=== PATIENT | male | born 1930 | race African-American/Black ===

== ENCOUNTER 2016-12-04 17:21 | Inpatient (IN) | payer MEDICARE, MEDICAID ==
[~2016-12-04] VITALS: Ht 167.6 cm; Wt 55.1 kg
[~2016-12-04 17:21] MED LIST: ATOR20TA65 PO; CINA30 PO; CLOP75TA2 PO; CLOP75TA33 PO; COR6 PO; Calcium Acetate PO; ONDA4TAB5 PO
[2016-12-04 18:06] LABS: BASOPHILS % 0.8 % (0.0-2.0); DIFFERENTIAL COMMENT 0; EOSINOPHILS % 6.6 % (0.0-5.0); HEMOGLOBIN. 11.9 g/dL (14.0-18.0); LYMPHOCYTES % 15.6 % (20.0-50.0); MEAN CORPUSCULAR HEMOGLOBIN 34.5 pg (28.0-32.0); MEAN CORPUSCULAR VOLUME 101.5 fL (80.0-94.0); MEAN PLATELET VOLUME 6.6 fl (7.4-10.4); PLATELET 234 x1000/uL (130-400); RED BLOOD CELL COUNT 3.45 mill/uL (4.7-6.1); RED CELL DISTRIBUTION WIDTH 15.1 % (11.6-14.6); WHITE BLOOD COUNT 5.6 x1000/uL (4.5-11.0)
[2016-12-04 18:15] LABS: CHLORIDE 94 mEq/L (98-107); INDEX HEMOLYSI 1 (1-3); INDEX ICTERIC 1 (1-4); INDEX LIPEMIC 1 (1-3)
[2016-12-04 18:17] LABS: ALBUMIN 3.8 g/dL (3.4-5.0); ANION GAP 12; CARBON DIOXIDE 32 mEq/L (21-32); MAGNESIUM 2.3 mg/dL (1.8-2.4)
[2016-12-04 18:18] LABS: INR 1.1; PARTIAL THROMBOPLASTIN TIME 27.1 sec (24.0-34.0); PROTHROMBIN TIME 11.3 sec
[2016-12-04 18:19] LABS: CALCIUM 8.6 mg/dL (8.5-10.1); LIPASE 350 IU/L (73-393); UREA NITROGEN BLOOD 19 mg/dL (7-21)
[2016-12-04 18:26] LABS: ALANINE AMINOTRANSFERASE 18 IU/L (13-61); PHOSPHORUS 1.9 mg/dL (2.5-4.9); TROPONIN I 0.03 ng/mL (0.00-0.04); eGFR 17 mL/min (>60)
[2016-12-04] MEDS ORDERED: NA PHOS,M-B/NA PHOS,DI-BA ENEMA 118ML PR PRN (19:45)
[2016-12-04] MEDS ORDERED: NITROGLYCERIN 0.4MG TABLET SL SL PRN (19:45)
[2016-12-04] MEDS ORDERED: MAGNESIUM/ALUMINUM HYDROXIDE/SIMETHICONE 30ML UDC PO PRN (19:45)
[2016-12-04] MEDS ORDERED: ONDANSETRON HCL 4MG/2ML VIAL IV PRN (19:45)
[2016-12-04] MEDS ORDERED: ZOLPIDEM TARTRATE 5MG TABLET PO PRN (19:45)
[2016-12-04] MEDS ORDERED: LORAZEPAM 2MG/ML CPJ IV PRN (19:45)
[2016-12-04] MEDS ORDERED: DOCUSATE SODIUM 100MG CAPSULE PO PRN (19:45)
[2016-12-04] MEDS ORDERED: ACETAMINOPHEN 325MG TABLET PO PRN (19:45)
[2016-12-04] MEDS ORDERED: IPRATROPIUM/ALBUTEROL 0.5-3(2.5)MG/3ML NEB INH PRN (19:45)
[2016-12-04] MEDS ORDERED: CLONIDINE 0.1MG TABLET PO PRN (19:45)
[2016-12-04] MEDS ORDERED: DIPHENHYDRAMINE 50MG/ML VIAL IV PRN (19:45)
[2016-12-04] MEDS ORDERED: GUAIFENESIN 200MG/10ML SUGAR FREE UDC PO PRN (19:45)
[2016-12-04] MEDS ORDERED: DEXTROSE 50% WATER 50ML SYRINGE IV PRN (20:45)
[2016-12-04] MEDS ORDERED: BLOOD SUGAR DIAGNOSTIC STRIP TEST SCH (21:00)
[2016-12-04] MEDS ORDERED: ATORVASTATIN CALCIUM 10MG TABLET PO SCH (21:00)
[2016-12-04] MEDS ORDERED: INSULIN LISPRO 100 UNITS/ML SUBCUT SCH (21:00)
[2016-12-04 23:25] LABS: CREATINE KINASE MB FRACTION 1.3 ng/mL (0.5-3.6); TROPONIN I 0.02 ng/mL (0.00-0.04)
[2016-12-05 00:30] VITALS: BP 156/81
[2016-12-05 04:00] VITALS: BP_SYST 134; BP_DIAS 170; BP_DIAS 70
[2016-12-05] MEDS: TRAMADOL 50MG TABLET PO PRN ×2 (05:48)
[2016-12-05] MEDS ORDERED: CARVEDILOL 3.125 MG TABLET PO SCH (06:00)
[2016-12-05] MEDS: BLOOD SUGAR DIAGNOSTIC STRIP TEST SCH ×4 (06:20→21:15)
[2016-12-05 06:43] LABS: CREATINE KINASE MB FRACTION 1.3 ng/mL (0.5-3.6); TROPONIN I 0.03 ng/mL (0.00-0.04)
[2016-12-05] MEDS: INSULIN LISPRO 100 UNITS/ML SUBCUT SCH ×4 (07:50→21:00)
[2016-12-05 08:11] VITALS: BP 130/75
[2016-12-05] MEDS: MORPHINE SULFATE 2 MG/ML CPJ (NOT FOR IM USE) IV PRN ×2 (08:23→13:53)
[2016-12-05] MEDS: ENOXAPARIN 30MG/0.3ML SYR SUBCUT SCH (08:31)
[2016-12-05] MEDS: FOLIC ACID/VITAMIN B COMP W-C TABLET PO SCH (08:31)
[2016-12-05] MEDS: CLOPIDOGREL 75MG TABLET PO SCH (08:32)
[2016-12-05] MEDS: PANTOPRAZOLE SODIUM 40 MG/VIAL IV SCH (08:32)
[2016-12-05] MEDS: ISOSORBIDE MONONITRATE 30MG TABLET SR 24HR PO SCH (11:37)
[2016-12-05 12:18] VITALS: BP 110/70
[2016-12-05 16:00] VITALS: BP 140/83
[2016-12-05 20:00] VITALS: BP 91/59
[2016-12-05] MEDS: METOPROLOL TARTRATE 50MG TABLET PO SCH (21:00)
[2016-12-05] MEDS: ATORVASTATIN CALCIUM 10MG TABLET PO SCH (21:14)
[2016-12-06] VITALS: BP 84/55
[2016-12-06] MEDS ORDERED: SODIUM CHLORIDE 0.9% 500 ML IV ONE ×2 (01:30→05:15)
[2016-12-06 04:00] VITALS: BP 86/50
[2016-12-06 06:37] LABS: CALCIUM 7.7 mg/dL (8.5-10.1)
[2016-12-06 06:41] LABS: MAGNESIUM 2.2 mg/dL (1.8-2.4); PHOSPHORUS 3.7 mg/dL (2.5-4.9)
[2016-12-06 06:45] LABS: DIFFERENTIAL COMMENT 0; HEMATOCRIT. 30.3 % (42.0-52.0); HEMOGLOBIN. 10.4 g/dL (14.0-18.0); LYMPHOCYTES % 20.2 % (20.0-50.0); MEAN CORPUSCULAR HEMOGLOBIN 34.8 pg (28.0-32.0); MEAN CORPUSCULAR HGB CONC 34.3 g/dL (31.0-37.0); MEAN CORPUSCULAR VOLUME 101.3 fL (80.0-94.0); MEAN PLATELET VOLUME 6.9 fl (7.4-10.4); MONOCYTES % 14.7 % (2.0-8.0); NEUTROPHILS % 58.1 % (40.0-76.0); PLATELET 209 x1000/uL (130-400); RED CELL DISTRIBUTION WIDTH 14.8 % (11.6-14.6); WHITE BLOOD COUNT 4.9 x1000/uL (4.5-11.0)
[2016-12-06] MEDS: INSULIN LISPRO 100 UNITS/ML SUBCUT SCH (07:19)
[2016-12-06] MEDS: BLOOD SUGAR DIAGNOSTIC STRIP TEST SCH (07:19)
[2016-12-06 07:32] VITALS: BP 113/64
[2016-12-06] MEDS: METOPROLOL TARTRATE 50MG TABLET PO SCH (09:00)
[2016-12-06] MEDS: ISOSORBIDE MONONITRATE 30MG TABLET SR 24HR PO SCH (09:00)
[2016-12-06] MEDS: PANTOPRAZOLE SODIUM 40 MG/VIAL IV SCH (09:02)
[2016-12-06] MEDS: ENOXAPARIN 30MG/0.3ML SYR SUBCUT SCH (09:02)
[2016-12-06] MEDS: FOLIC ACID/VITAMIN B COMP W-C TABLET PO SCH (09:02)
[2016-12-06] MEDS: CLOPIDOGREL 75MG TABLET PO SCH (09:02)
[2016-12-06 12:00] VITALS: BP 112/67
[2016-12-06 15:54] VITALS: BP 111/59
[2016-12-06 20:00] VITALS: BP 130/62
[2016-12-06] MEDS: ATORVASTATIN CALCIUM 10MG TABLET PO SCH (21:52)
[2016-12-06] MEDS: METOPROLOL TARTRATE 25MG TABLET PO SCH (21:52)
[2016-12-07] VITALS: BP 129/64
[2016-12-07 04:00] VITALS: BP 116/60
[2016-12-07 08:04] VITALS: BP 123/69
[2016-12-07] MEDS: CLOPIDOGREL 75MG TABLET PO SCH (10:00)
[2016-12-07] MEDS: FAMOTIDINE 20MG/2ML VIAL IV SCH (10:00)
[2016-12-07] MEDS: ENOXAPARIN 30MG/0.3ML SYR SUBCUT SCH (10:00)
[2016-12-07] MEDS: METOPROLOL TARTRATE 25MG TABLET PO SCH ×2 (10:01→21:00)
[2016-12-07] MEDS: FOLIC ACID/VITAMIN B COMP W-C TABLET PO SCH (10:01)
[2016-12-07 12:00] VITALS: BP 140/78
[2016-12-07 16:00] VITALS: BP 121/51
[2016-12-07 20:00] VITALS: BP 127/72
[2016-12-07] MEDS: ATORVASTATIN CALCIUM 10MG TABLET PO SCH (22:31)
[2016-12-08] VITALS: BP 132/81
[2016-12-08 04:00] VITALS: BP 153/82
[2016-12-08 08:00] VITALS: BP 127/65
[2016-12-08] MEDS: ENOXAPARIN 30MG/0.3ML SYR SUBCUT SCH (10:05)
[2016-12-08] MEDS: CLOPIDOGREL 75MG TABLET PO SCH (10:05)
[2016-12-08] MEDS: FAMOTIDINE 20MG/2ML VIAL IV SCH (10:06)
[2016-12-08] MEDS: METOPROLOL TARTRATE 25MG TABLET PO SCH (10:06)
[2016-12-08] MEDS: FOLIC ACID/VITAMIN B COMP W-C TABLET PO SCH (10:06)
[2016-12-08 11:43] VITALS: BP 127/85
[2016-12-08 12:08] VITALS: BP 136/59
== END 2016-12-08 14:29 | DRG 313 ==
LOC: ER 17:25 → 6WST 18:08 → SUPCPDRO 18:08
PROVIDERS: ADMIT Internal Medicine; ATTEND Internal Medicine
PROC: 5A1D00Z (ICD-10-PCS; principal; 2016-12-06)
DX: R07.89 Other chest pain (principal); N18.6 End stage renal disease; E87.1 Hypo-osmolality and hyponatremia; I13.2 Hypertensive heart and chronic kidney disease with heart failure and with stage 5 chronic kidney disease, or end stage renal disease; I69.351 Hemiplegia and hemiparesis following cerebral infarction affecting right dominant side; I47.1 Supraventricular tachycardia; N25.81 Secondary hyperparathyroidism of renal origin; I50.9 Heart failure, unspecified; I48.91 Unspecified atrial fibrillation; Z88.6 Allergy status to analgesic agent; Z88.5 Allergy status to narcotic agent; Z79.899 Other long term (current) drug therapy; E11.22 Type 2 diabetes mellitus with diabetic chronic kidney disease; Z99.2 Dependence on renal dialysis; J44.9 Chronic obstructive pulmonary disease, unspecified; E78.00 Pure hypercholesterolemia, unspecified; D63.8 Anemia in other chronic diseases classified elsewhere; I25.10 Atherosclerotic heart disease of native coronary artery without angina pectoris; E78.5 Hyperlipidemia, unspecified; Z85.118 Personal history of other malignant neoplasm of bronchus and lung; E83.39 Other disorders of phosphorus metabolism; I35.8 Other nonrheumatic aortic valve disorders; Z79.02 Long term (current) use of antithrombotics/antiplatelets; Z87.891 Personal history of nicotine dependence; Z90.2 Acquired absence of lung [part of]; Z91.81 History of falling
CPT/HCPCS: 36415; 71010; 80048; 80053; 80061; 82550; 82553; 82962; 83036; 83690; 83735; 84100; 84484; 85025; 85610; 85730; 92610; 93005; 93970; 97116; 97162; 97166; 99285; A6261; C9113; J1650; J2270; J2405; J3490; J7030; J7040